=== PATIENT | female | born 1955 | race Caucasian/White ===

== ENCOUNTER 2017-07-13 20:14 | Inpatient (IN) | payer MEDICARE ==
[~2017-07-13] VITALS: Ht 172.7 cm; Wt 111.0 kg
[2017-07-13] MEDS ORDERED: SODIUM CHLORIDE FLUSH 10ML SYR IVF ONE (20:30)
[2017-07-13 21:25] LABS: MEAN CORPUSCULAR HEMOGLOBIN 33.1 pg (27.0-34.8); MEAN CORPUSCULAR HGB CONC 34.1 g/dL (32.4-35.8); MEAN CORPUSCULAR VOLUME 96.9 fL (80-100); MEAN PLATELET VOLUME 9.8 fL (7.4-10.4); PLATELET COUNT 410 x10^3/uL (130-400); RED BLOOD COUNT 4.66 x10^6/uL (3.82-5.3); RED CELL DISTRIBUTION WIDTH 17.3 % (9.6-15.2)
[2017-07-13 21:26] LABS: MD YES
[2017-07-13 21:31] LABS: INTERNATIONAL NORMALIZED RATIO 1.12 (0.93-1.1); PROTHROMBIN TIME 11.6 Seconds (9.6-11.5)
[2017-07-13 21:35] LABS: ALANINE AMINOTRANSFERASE 82 U/L (12-78); ALBUMIN 2.6 g/dL (3.4-5.0); ANION GAP 11 mmol/L (5-15); CALCIUM 9.6 mg/dL (8.5-10.1); CHLORIDE 100 mmol/L (98-107)
[2017-07-13 21:40] LABS: ALKALINE PHOSPHATASE 360 U/L (45-117); CREATININE 1.38 mg/dL (0.55-1.02)
[2017-07-13 21:42] LABS: TOTAL PROTEIN 7.2 g/dL (6.4-8.2)
[2017-07-13 21:43] LABS: BILIRUBIN,TOTAL 23.5 mg/dL (0.2-1.0)
[2017-07-13 21:46] LABS: EOS#(MANUAL) 0.11 x10^3/uL (0.0-0.4); EOS% (MANUAL) 1 % (1-7); LYMPH#(MANUAL) 2.03 x10^3/uL (1-3.4); LYMPHS% (MANUAL) 19 % (22-44); MONOS#(MANUAL) 1.07 x10^3/uL (0.3-2.7); MONOS% (MANUAL) 10 % (2-9); SEG#(MANUAL) 7.49 x10^3/uL (1.8-6.8); SEGS% (MANUAL) 70 % (42-75)
[2017-07-13 21:48] LABS: ANISOCYTOSIS 1+
[2017-07-13 21:51] LABS: <PLATELET ESTIMATE> ADEQUATE; TARGET CELLS 1+
[2017-07-13 21:52] LABS: LARGE PLATELETS 1+; OVALOCYTES 1+
[2017-07-13 22:10] LABS: CULTURE INDICATED? YES; MICROSCOPIC INDICATED
[2017-07-13] MEDS ORDERED: HYDROCHLOROTHIAZIDE 12.5 MG CAPSULE PO ONE (22:30)
[2017-07-13] MEDS ORDERED: DIPHENHYDRAMINE 25 MG CAPSULE PO PRN (22:30)
[2017-07-13] MEDS ORDERED: LISINOPRIL 20 MG TABLET PO ONE (22:30)
[2017-07-13] MEDS ORDERED: DIPHENHYDRAMINE 50 MG/ML, 1ML ONE (22:41)
[2017-07-13] MEDS ORDERED: HYDROmorphone 2 MG/ML, 1ML ONE (22:41)
[2017-07-13] MEDS ORDERED: ONDANSETRON 2MG/ML, 2ML ONE (22:41)
[2017-07-13] MEDS: ONDANSETRON 2MG/ML, 2ML IVPush PRN (22:54)
[2017-07-13] MEDS: HYDROmorphone 2 MG/ML, 1ML IVPush PRN (22:54)
[2017-07-13] MEDS ORDERED: CEFOTETAN PMX 1GM/50ML 50 ML ONE (22:59)
[2017-07-13] MEDS: CEFOTETAN PMX 1GM/50ML 50 ML IVPB SCH (23:01)
[2017-07-13 23:43] VITALS: BP 103/62
[2017-07-14] MEDS: D5%-0.45NACL+KCL 20MEQ 1,000 ML IV SCH ×3 (01:21→16:43)
[2017-07-14] MEDS: HYDROmorphone 2 MG/ML, 1ML IVPush PRN ×5 (01:26→21:52)
[2017-07-14 02:50] VITALS: BP 93/62
[2017-07-14 05:48] LABS: CHLORIDE 99 mmol/L (98-107)
[2017-07-14 05:52] LABS: MEAN CORPUSCULAR HEMOGLOBIN 33.3 pg (27.0-34.8); MEAN CORPUSCULAR HGB CONC 34.9 g/dL (32.4-35.8); MEAN CORPUSCULAR VOLUME 95.6 fL (80-100); MEAN PLATELET VOLUME 9.7 fL (7.4-10.4); PLATELET COUNT 408 x10^3/uL (130-400); RED CELL DISTRIBUTION WIDTH 16.5 % (9.6-15.2)
[2017-07-14 05:56] LABS: ALANINE AMINOTRANSFERASE 74 U/L (12-78); ALBUMIN 2.4 g/dL (3.4-5.0); ALKALINE PHOSPHATASE 335 U/L (45-117); ANION GAP 12 mmol/L (5-15); CALCIUM 9.1 mg/dL (8.5-10.1)
[2017-07-14 06:00] LABS: TOTAL PROTEIN 6.4 g/dL (6.4-8.2)
[2017-07-14 06:03] LABS: BILIRUBIN,TOTAL 21.9 mg/dL (0.2-1.0)
[2017-07-14 06:09] LABS: MD YES
[2017-07-14 06:13] LABS: EOS#(MANUAL) 0.32 x10^3/uL (0.0-0.4); EOS% (MANUAL) 3 % (1-7); LYMPH#(MANUAL) 2.27 x10^3/uL (1-3.4); LYMPHS% (MANUAL) 21 % (22-44); MONOS#(MANUAL) 0.76 x10^3/uL (0.3-2.7); MONOS% (MANUAL) 7 % (2-9); SEG#(MANUAL) 7.45 x10^3/uL (1.8-6.8); SEGS% (MANUAL) 69 % (42-75)
[2017-07-14 06:14] LABS: <PLATELET ESTIMATE> ADEQUATE; ANISOCYTOSIS 1+; LARGE PLATELETS 1+; OVALOCYTES 1+; TARGET CELLS 1+
[2017-07-14 07:09] VITALS: BP 108/74
[2017-07-14] MEDS: FAMOTIDINE 20 MG/2 ML IVPush SCH ×2 (08:07→21:52)
[2017-07-14] MEDS: ONDANSETRON 2MG/ML, 2ML IVPush PRN ×2 (08:07→17:10)
[2017-07-14] MEDS: LISINOPRIL 20 MG TABLET PO SCH (08:08)
[2017-07-14] MEDS: HYDROCHLOROTHIAZIDE 12.5 MG CAPSULE PO SCH (08:08)
[2017-07-14] MEDS: CEFOTETAN PMX 1GM/50ML 50 ML IVPB SCH ×2 (10:43→23:42)
[2017-07-14] MEDS ORDERED: FUROSEMIDE 20 MG/2 ML IV ONE (13:30)
[2017-07-14] MEDS ORDERED: SODIUM CHLORIDE 0.9% 1,000ML IVBOLUS ONE (13:30)
[2017-07-14 17:15] VITALS: BP 90/56
[2017-07-14 20:26] VITALS: BP 87/57
[2017-07-15] MEDS: HYDROmorphone 2 MG/ML, 1ML IVPush PRN ×7 (00:33→23:40)
[2017-07-15] MEDS: D5%-0.45NACL+KCL 20MEQ 1,000 ML IV SCH ×3 (01:30→23:42)
[2017-07-15 03:57] VITALS: BP 112/69
[2017-07-15] MEDS: ONDANSETRON 2MG/ML, 2ML IVPush PRN ×2 (05:50→12:01)
[2017-07-15 05:57] LABS: ANION GAP 10 mmol/L (5-15); CALCIUM 9.2 mg/dL (8.5-10.1); CHLORIDE 102 mmol/L (98-107)
[2017-07-15 06:06] LABS: CREATININE 1.71 mg/dL (0.55-1.02)
[2017-07-15 07:06] VITALS: BP 91/59
[2017-07-15] MEDS: LISINOPRIL 20 MG TABLET PO SCH (08:17)
[2017-07-15] MEDS: HYDROCHLOROTHIAZIDE 12.5 MG CAPSULE PO SCH (08:18)
[2017-07-15] MEDS: FAMOTIDINE 20 MG/2 ML IVPush SCH ×2 (09:59→20:40)
[2017-07-15 10:03] VITALS: BP 123/82
[2017-07-15] MEDS: CEFOTETAN PMX 1GM/50ML 50 ML IVPB SCH ×2 (10:36→22:49)
[2017-07-15] MEDS ORDERED: MIDAZOLAM 1 MG/ML, 2ML ONE ×2 (12:31→15:05)
[2017-07-15] MEDS ORDERED: FENTANYL PF 100 MCG/2ML ONE (12:31)
[2017-07-15] MEDS ORDERED: LIDOCAINE 1%, 2ML ONE (12:50)
[2017-07-15] MEDS ORDERED: FENTANYL PF 250 MCG/5ML ONE (13:26)
[2017-07-15] MEDS ORDERED: DIPHENHYDRAMINE 50 MG/ML, 1ML ONE (14:48)
[2017-07-15] MEDS ORDERED: HYDROmorphone 2 MG/ML, 1ML ONE (14:48)
[2017-07-15] MEDS: HYDROmorphone 1 MG/ML, 1ML IV PRN ×3 (14:50→15:00)
[2017-07-15] MEDS ORDERED: FENTANYL PF 100 MCG/2ML IV PRN (15:00)
[2017-07-15] MEDS ORDERED: ONDANSETRON 2MG/ML, 2ML IVPush PRN (15:00)
[2017-07-15] MEDS ORDERED: MIDAZOLAM 1 MG/ML, 2ML IV PRN (15:00)
[2017-07-15] MEDS ORDERED: PROMETHAZINE 25 MG/ML, 1ML IV PRN (15:00)
[2017-07-15] MEDS ORDERED: DIPHENHYDRAMINE 50 MG/ML, 1ML IVPush ONE (15:00)
[2017-07-15] MEDS ORDERED: DEXAMETHASONE 4 MG/ML, 1ML ONE (16:33)
[2017-07-15] MEDS ORDERED: ONDANSETRON 2MG/ML, 2ML ONE (16:33)
[2017-07-15] MEDS ORDERED: PROPOFOL 10 MG/ML, 20ML ONE (16:33)
[2017-07-15] MEDS ORDERED: SUCCINYLCHOLINE 20 MG/ML, 10ML ONE (16:33)
[2017-07-15 23:46] VITALS: BP 142/87
[2017-07-16] MEDS: HYDROmorphone 2 MG/ML, 1ML IVPush PRN ×2 (02:50→06:17)
[2017-07-16 05:47] LABS: ANION GAP 8 mmol/L (5-15); CALCIUM 9.2 mg/dL (8.5-10.1); CHLORIDE 105 mmol/L (98-107); CREATININE 1.51 mg/dL (0.55-1.02)
[2017-07-16] MEDS: ONDANSETRON 2MG/ML, 2ML IVPush PRN (06:17)
[2017-07-16] MEDS: D5%-0.45NACL+KCL 20MEQ 1,000 ML IV SCH ×3 (06:40→19:48)
[2017-07-16 07:38] VITALS: BP 125/84
[2017-07-16] MEDS: HYDROCHLOROTHIAZIDE 12.5 MG CAPSULE PO SCH (08:27)
[2017-07-16] MEDS: LISINOPRIL 20 MG TABLET PO SCH (08:28)
[2017-07-16 08:33] VITALS: BP 129/75
[2017-07-16] MEDS: OXYcodone/APAP 10/325MG TABLET PO PRN ×4 (08:39→22:15)
[2017-07-16] MEDS: CEFOTETAN PMX 1GM/50ML 50 ML IVPB SCH ×2 (10:32→22:15)
[2017-07-16 12:43] VITALS: BP 120/75
[2017-07-16 20:29] VITALS: BP 113/69
[2017-07-16] MEDS: FAMOTIDINE 20 MG/2 ML IVPush SCH (20:58)
[2017-07-17 01:48] VITALS: BP 101/66
[2017-07-17] MEDS: OXYcodone/APAP 10/325MG TABLET PO PRN ×4 (02:20→19:34)
[2017-07-17] MEDS: D5%-0.45NACL+KCL 20MEQ 1,000 ML IV SCH ×3 (03:12→17:45)
[2017-07-17 05:47] LABS: ALBUMIN 2.3 g/dL (3.4-5.0); BILIRUBIN, DIRECT 7.6 mg/dL (0.1-0.2)
[2017-07-17 05:50] LABS: BILIRUBIN,INDIRECT 1.4 mg/dL (0.0-2.0); TOTAL PROTEIN 6.1 g/dL (6.4-8.2)
[2017-07-17 07:09] VITALS: BP 105/73
[2017-07-17] MEDS: HYDROCHLOROTHIAZIDE 12.5 MG CAPSULE PO SCH (08:55)
[2017-07-17] MEDS: LISINOPRIL 20 MG TABLET PO SCH (08:56)
[2017-07-17] MEDS: CEFOTETAN PMX 1GM/50ML 50 ML IVPB SCH ×2 (10:19→22:34)
[2017-07-17 12:38] VITALS: BP 96/63
[2017-07-17] MEDS: ONDANSETRON 2MG/ML, 2ML IVPush PRN (14:48)
[2017-07-17] MEDS: FAMOTIDINE 20 MG/2 ML IVPush SCH (21:14)
[2017-07-17 21:39] VITALS: BP 98/62
[2017-07-18 00:35] VITALS: BP 101/69
[2017-07-18] MEDS: OXYcodone/APAP 10/325MG TABLET PO PRN ×3 (01:39→15:11)
[2017-07-18] MEDS: D5%-0.45NACL+KCL 20MEQ 1,000 ML IV SCH ×4 (01:39→22:20)
[2017-07-18 08:18] VITALS: BP 100/66
[2017-07-18] MEDS: LISINOPRIL 20 MG TABLET PO SCH (09:00)
[2017-07-18] MEDS: HYDROCHLOROTHIAZIDE 12.5 MG CAPSULE PO SCH (09:18)
[2017-07-18] MEDS: CEFOTETAN PMX 1GM/50ML 50 ML IVPB SCH ×2 (10:28→22:30)
[2017-07-18 10:43] LABS: ALANINE AMINOTRANSFERASE 44 U/L (12-78); ALBUMIN 2.3 g/dL (3.4-5.0); ANION GAP 7 mmol/L (5-15); CALCIUM 8.9 mg/dL (8.5-10.1); CHLORIDE 106 mmol/L (98-107); CREATININE 1.28 mg/dL (0.55-1.02)
[2017-07-18 10:46] LABS: ALKALINE PHOSPHATASE 246 U/L (45-117); BILIRUBIN,TOTAL 8.7 mg/dL (0.2-1.0); TOTAL PROTEIN 6.7 g/dL (6.4-8.2)
[2017-07-18 13:21] VITALS: BP 95/60
[2017-07-18] MEDS: ONDANSETRON 2MG/ML, 2ML IVPush PRN (19:26)
[2017-07-18 20:09] VITALS: BP 112/75
[2017-07-18] MEDS: FAMOTIDINE 20 MG/2 ML IVPush SCH (21:00)
[2017-07-19 01:50] VITALS: BP 108/63
[2017-07-19] MEDS: D5%-0.45NACL+KCL 20MEQ 1,000 ML IV SCH ×3 (05:00→22:30)
[2017-07-19] MEDS: OXYcodone/APAP 10/325MG TABLET PO PRN ×3 (05:05→18:30)
[2017-07-19 07:22] VITALS: BP 108/71
[2017-07-19] MEDS: LISINOPRIL 20 MG TABLET PO SCH (08:50)
[2017-07-19] MEDS: HYDROCHLOROTHIAZIDE 12.5 MG CAPSULE PO SCH (08:50)
[2017-07-19] MEDS: CEFOTETAN PMX 1GM/50ML 50 ML IVPB SCH ×2 (10:27→22:30)
[2017-07-19] MEDS ORDERED: LIDOCAINE 1%, 20ML ONE (12:35)
[2017-07-19] MEDS ORDERED: FENTANYL PF 100 MCG/2ML ONE (13:06)
[2017-07-19] MEDS ORDERED: NALOXONE 1 MG/ML, 2ML ONE (13:06)
[2017-07-19] MEDS ORDERED: MIDAZOLAM 1 MG/ML, 2ML ONE ×2 (13:06)
[2017-07-19] MEDS ORDERED: FLUMAZENIL 0.1 MG/1 ML, 5ML ONE (13:06)
[2017-07-19 16:17] VITALS: BP 133/69
[2017-07-19 20:10] VITALS: BP 100/66
[2017-07-19] MEDS: FAMOTIDINE 20 MG/2 ML IVPush SCH (21:12)
[2017-07-20] MEDS: D5%-0.45NACL+KCL 20MEQ 1,000 ML IV SCH ×2 (02:10→07:33)
[2017-07-20] MEDS: OXYcodone/APAP 10/325MG TABLET PO PRN ×2 (02:16→08:11)
[2017-07-20 02:19] VITALS: BP 134/87
[2017-07-20] MEDS: ONDANSETRON 2MG/ML, 2ML IVPush PRN (02:55)
[2017-07-20 06:56] VITALS: BP 106/75
[2017-07-20] MEDS: HYDROCHLOROTHIAZIDE 12.5 MG CAPSULE PO SCH (09:00)
[2017-07-20] MEDS: LISINOPRIL 20 MG TABLET PO SCH (09:00)
== END 2017-07-20 10:30 | disposition home or self-care (01) | DRG 435 ==
LOC: ED 22:52 → EDIP 23:00 → 4NOR 23:20 → DCLOUNGE 07-20 10:00
PROVIDERS: ADMIT Surgery; ATTEND Surgery
PROC: BF131ZZ Fluoroscopy of Gallbladder and Bile Ducts using Low Osmolar Contrast (ICD-10-PCS; 2017-07-15)
PROC: 0DJ08ZZ Inspection of Upper Intestinal Tract, Via Natural or Artificial Opening Endoscopic (ICD-10-PCS; 2017-07-15)
PROC: 0F798DZ Dilation of Common Bile Duct with Intraluminal Device, Via Natural or Artificial Opening Endoscopic (ICD-10-PCS; principal; 2017-07-15 10:15)
PROC: 0FB03ZX Excision of Liver, Percutaneous Approach, Diagnostic (ICD-10-PCS; 2017-07-19)
PROC: 05HM33Z Insertion of Infusion Device into Right Internal Jugular Vein, Percutaneous Approach (ICD-10-PCS; 2017-07-19)
PROC: B543ZZA Ultrasonography of Right Jugular Veins, Guidance (ICD-10-PCS; 2017-07-19)
DX: C23 Malignant neoplasm of gallbladder (principal); E43 Unspecified severe protein-calorie malnutrition; E66.01 Morbid (severe) obesity due to excess calories; K80.21 Calculus of gallbladder without cholecystitis with obstruction; K43.6 Other and unspecified ventral hernia with obstruction, without gangrene; N28.1 Cyst of kidney, acquired; Z68.37 Body mass index [BMI] 37.0-37.9, adult; F10.21 Alcohol dependence, in remission; F12.90 Cannabis use, unspecified, uncomplicated; F17.210 Nicotine dependence, cigarettes, uncomplicated; G89.29 Other chronic pain; I10 Essential (primary) hypertension; Z79.899 Other long term (current) drug therapy
CPT/HCPCS: 36415; 36561; 47000; 74178; 74181; 74328; 76700; 76937; 77001; 77012; 80048; 80053; 80076; 81001; 82140; 82378; 83605; 83690; 83880; 85025; 85610; 85730; 86301; 86704; 86706; 86708; 86803; 87040; 87086; 87340; 88104; 88112; 88307; 88341; 88342; 93005; 99156; 99157; 99285; J1100; J1170; J2250; J2405; J2704; J3010; J3490; C1769; C1894; C2625; G0461; J0330; J1642; J1940; J2310; J3480; J7030; Q0163; S0028; S0074